=== PATIENT | male | born 1990 | race American Indian/Alaskan Native ===

== ENCOUNTER 2021-06-18 08:23 | Emergency (ER) | payer SELFPAY ==
[2021-06-18 08:32] VITALS: BP 162/116
--- NOTE | 2021-06-18 08:42 | Event Note ---
Patient left prior to my evaluation. She told the triage nurse "[email or web address] [id number] [phone]."
== END 2021-06-19 09:59 | disposition left against medical advice (07) ==
LOC: ED 08:23
DX: R45.851 Suicidal ideations (principal); Z53.21 Procedure and treatment not carried out due to patient leaving prior to being seen by health care provider